=== PATIENT | male | born 1980 | race Caucasian/White ===

== ENCOUNTER 2023-04-26 07:28 | Emergency (ER) | payer MEDICAID ==
[~2023-04-26] VITALS: Ht 180.3 cm; Wt 77.3 kg
[2023-04-26] MEDS ORDERED: IBUP-1554 PO (08:28)
[2023-04-26] MEDS ORDERED: ACET-2080 PO (08:28)
[2023-04-26] MEDS ORDERED: PENI500T2 PO (08:28)
[2023-04-26 08:30] VITALS: BP 122/78
[2023-04-26] MEDS ORDERED: KETOROLAC TROMETHAMINE 60 MG/2 ML VIAL IM ONE (08:30)
[2023-04-26] MEDS ORDERED: CEPHALEXIN MONOHYDRATE 500 MG CAPSULE PO ONE (08:30)
[2023-04-26] MEDS ORDERED: ACETAMINOPHEN/CODEINE 300-30 MG TABLET PO ONE (08:30)
== END 2023-04-26 08:50 | disposition home or self-care (01) ==
LOC: EMS 07:40
DX: K04.7 Periapical abscess without sinus (principal); K08.89 Other specified disorders of teeth and supporting structures; F17.210 Nicotine dependence, cigarettes, uncomplicated
CPT/HCPCS: 99283; 96372; J1885